=== PATIENT | female | born 1990 | race African-American/Black ===

== ENCOUNTER 2017-01-06 07:07 | Inpatient (IN) | payer OTHER, MEDICAID ==
[~2017-01-06] VITALS: Ht 165.1 cm; Wt 95.3 kg
[2017-01-06] MEDS ORDERED: DEXT 5%/LR + PITOCIN 20UNITS/L 1,000 ML IV ONE (07:16)
[2017-01-06] MEDS ORDERED: CARBOPROST TROMETHAMINE 250 MCG/ML AMPUL IM PRN (07:45)
[2017-01-06] MEDS ORDERED: LACTATED RINGERS 1,000 ML IV SCH ×2 (07:45→14:00)
[2017-01-06] MEDS ORDERED: MISOPROSTOL 100MCG TABLET VG SCH (07:45)
[2017-01-06] MEDS ORDERED: DEXT 5%/LR + PITOCIN 20UNITS/L 1,000 ML IV SCH (07:45)
[2017-01-06] MEDS ORDERED: HEMORRHOIDAL SUPP PR PRN (08:00)
[2017-01-06] MEDS ORDERED: TETANUS, DIPHTHERIA, PERTUSSIS VAC/PF 0.5ML (>7YR OLD) IM ONE (08:00)
[2017-01-06] MEDS ORDERED: IBUPROFEN 400MG TABLET PO PRN (08:00)
[2017-01-06] MEDS ORDERED: RHO(D) IMMUNE GLOBULIN 300 MCG/SYR IM PRN (08:00)
[2017-01-06] MEDS ORDERED: GLYCERIN/WITCH HAZEL LEAF MEDICATED PAD TOP PRN (08:00)
[2017-01-06] MEDS ORDERED: DIPHENHYDRAMINE 25MG CAPSULE PO PRN (08:00)
[2017-01-06] MEDS ORDERED: BENZOCAINE/LANOLIN/ALOE VERA SPRAY TOP PRN (08:00)
[2017-01-06] MEDS ORDERED: ACETAMINOPHEN WITH CODEINE 300/30MG TABLET PO PRN ×2 (08:00)
[2017-01-06] MEDS ORDERED: LANOLIN OINT 0.25 GM TUBE TOP PRN (08:00)
[2017-01-06 08:07] LABS: BASOPHILS % 0.3 % (0.0-2.0); EOSINOPHILS % 0.1 % (0.0-5.0); HEMATOCRIT. 33.2 % (36.0-48.0); HEMOGLOBIN. 11.3 g/dL (12.0-16.0); LYMPHOCYTES % 7.7 % (20.0-50.0); MEAN CORPUSCULAR HEMOGLOBIN 30.3 pg (28.0-32.0); MEAN CORPUSCULAR HGB CONC 34.1 g/dL (31.0-37.0); MEAN CORPUSCULAR VOLUME 88.9 fL (81.0-99.0); MEAN PLATELET VOLUME 9.9 fl (7.4-10.4); MONOCYTES % 5.3 % (2.0-8.0); NEUTROPHILS % 86.6 % (40.0-76.0); PLATELET 198 x1000/uL (130-400); RED BLOOD CELL COUNT 3.73 mill/uL (4.2-5.4); RED CELL DISTRIBUTION WIDTH 13.2 % (11.6-14.6); WHITE BLOOD COUNT 16.4 x1000/uL (4.5-11.0)
[2017-01-06] MEDS: DEXT 5%/LR + PITOCIN 20UNITS/L 1,000 ML IV SCH ×2 (08:49→09:00)
[2017-01-06 09:45] VITALS: BP 134/83
[2017-01-06 10:15] VITALS: BP 131/82
[2017-01-06] MEDS: PRENATAL VIT/FE FUMARATE/FA TABLET PO SCH (13:07)
[2017-01-06 14:22] LABS: HEPATITIS B SURFACE ANTIGEN NEGATIVE; RUBELLA IGG 30.9 IU/mL (4.99-10)
[2017-01-06 16:29] VITALS: BP 126/86
[2017-01-06] MEDS: DOCUSATE SODIUM 100MG CAPSULE PO SCH (21:29)
[2017-01-07 00:05] VITALS: BP 123/84
[2017-01-07 07:32] VITALS: BP 104/76
[2017-01-07] MEDS: FERROUS SULFATE 325MG TABLET PO SCH ×3 (08:32→18:44)
[2017-01-07] MEDS: PRENATAL VIT/FE FUMARATE/FA TABLET PO SCH (08:32)
[2017-01-07 16:06] VITALS: BP 118/78
[2017-01-07 20:00] VITALS: BP 132/80
[2017-01-07] MEDS: DOCUSATE SODIUM 100MG CAPSULE PO SCH (21:09)
== END 2017-01-07 22:15 | disposition short-term general hospital (02) | DRG 767 ==
LOC: OBSVTOIN 07:07 → L&D 07:07 → 7EST PP/OB 09:40
PROVIDERS: ADMIT Specialist; ATTEND Specialist
PROC: 10D17ZZ Extraction of Products of Conception, Retained, Via Natural or Artificial Opening (ICD-10-PCS; principal; 2017-01-06 09:25)
DX: Z39.0 Encounter for care and examination of mother immediately after delivery (principal); Z37.0 Single live birth; Z3A.38 38 weeks gestation of pregnancy
CPT/HCPCS: 36415; 85025; 86592; 86703; 86762; 86850; 86900; 87340; J2590; J7120